=== PATIENT | female | born 1935 | race Caucasian/White ===

== ENCOUNTER 2016-12-04 12:30 | Inpatient (IN) | payer MEDICARE ==
[~2016-12-04] VITALS: Ht 170.2 cm; Wt 102.9 kg
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
[2016-12-04] MEDS ORDERED: ALENDRONATE SOD70 MG PO (16:28)
[2016-12-04] MEDS ORDERED: DULCOLAX5 MG PO (16:30)
[2016-12-04] MEDS ORDERED: CALCIUM 600 +1 EAC3 PO (16:31)
[2016-12-04] MEDS ORDERED: ZYRTEC10 MG PO (16:32)
[2016-12-04] MEDS ORDERED: CYMBALTA20 MG PO (16:33)
[2016-12-04] MEDS ORDERED: FLORANEX / LACT1 TAB PO ×2 (16:35→16:37)
[2016-12-04] MEDS ORDERED: FLUTICASONE PRO16 GM NASAL (16:38)
[2016-12-04] MEDS ORDERED: FUROSEMIDE40 MG PO (16:39)
[2016-12-04] MEDS ORDERED: METOPROLOL TART50 MG PO (16:41)
[2016-12-04] MEDS ORDERED: PATANOL 0.1 % OP5 ML EACH EYE (16:41)
[2016-12-04] MEDS ORDERED: MOBISYL TP (16:42)
[2016-12-04] MEDS ORDERED: K-TAB10 MEQ PO (16:43)
[2016-12-04] MEDS ORDERED: PRAVACHOL40 MG PO (16:43)
[2016-12-04] MEDS ORDERED: SENNA LAXATIVE8.6 MG PO (16:46)
[2016-12-04] MEDS ORDERED: ZYPREXA5 MG PO (16:47)
[2016-12-04] MEDS ORDERED: DURAGESIC1 PATCH .2 TRANSDERM (16:47)
[2016-12-04 18:28] LABS: BASOPHILS 0.1 % (0.0-2.0); EOSINOPHILS 1.7 % (0-7); HEMATOCRIT 40.4 % (36.0-48.0); IMMATURE GRANULOCYTES 0.3 % (0-5); LYMPHOCYTES 25.3 % (15-50); MCH 30.2 pg (26.0-34.0); MCHC 32.2 g/dL (31.0-37.0); MEAN PLATELET VOLUME 10.2 fL (7.4-10.4); MONOCYTES 5.8 % (2-11); NEUTROPHILS 66.8 % (40-80); PLATELET COUNT 241 10x3/uL (130-400); RDW 13.3 % (11.5-14.5); WBC 11.6 10x3/uL (4.8-10.8)
[2016-12-04 19:41] LABS: ALBUMIN 3.8 g/dL (3.4-5.0); ANION GAP 12.6 mmol/L (8-16); BILIRUBIN - TOTAL 0.46 mg/dL (0.2-1.3); CALCIUM 9.4 mg/dL (8.5-10.1); CARBON DIOXIDE 33.1 mmol/L (21.0-32.0); CHOL - HDL RATIO 3.2 ratio (2.3-4.1); CREATININE - SERUM 1.2 mg/dL (0.6-1.3); LDL-HDL RATIO 0.8 ratio (1.5-3.5); POTASSIUM - SERUM 3.7 mmol/L (3.5-5.1); PROTEIN - SERUM 7.4 g/dL (6.4-8.2); THYROID STIMULATING HORMONE 1.14 uIU/mL (0.36-3.74)
[2016-12-04 19:53] LABS: HEMOGLOBIN A1C 6.1 % (4.8-6.0)
[2016-12-04 20:34] VITALS: BP 139/80
--- NOTE | 2016-12-05 02:27 | NUR ---
RECEIVED IN HALLWAY SETTING IN WHEELCHAIR OUTSIDE OF NURSES STATION. CALM AND COOPERATIVE WITH CARE AND ASSESSMENT. NO SIGNS OF HALLUCINATIONS OR DELUSIONS. O2 @ 2L/M VIA N/C. ENCOURAGE TO EXPRESS NEEDS. PM MEDS GIVEN ORDERED. RESTING EYES CLOSED AT THIS TIME. CONTINUE PLAN OF CARE
[2016-12-05 07:48] VITALS: BP 143/75; BMI 33.9
[2016-12-05 09:57] VITALS: Ht 170.2 cm; Wt 102.9 kg
[2016-12-05 12:33] VITALS: BP 108/73
[2016-12-05 14:43] LABS: COLOR YELLOW (YELLOW)
[2016-12-05 14:44] LABS: APPEARANCE HAZY (CLEAR); BACTERIA MANY /hpf (NONE SEEN); BILIRUBIN NEGATIVE (NEGATIVE); EPITHELIAL CELLS 0-5 /hpf (0-5); GLUCOSE NEGATIVE (NEGATIVE); KETONE NEGATIVE (NEGATIVE); LEUKOCYTE ESTERASE 1+ (NEGATIVE); MUCUS <1+ /lpf (NONE SEEN); NITRITE POSITIVE (NEGATIVE); PROTEIN NEGATIVE (NEGATIVE); RED CELLS - URINE 0-5 /hpf (0-5); SPECIFIC GRAVITY 1.015 (1.005-1.020); UROBILINOGEN NORMAL (NORMAL)
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
[2016-12-05 20:00] VITALS: BP 105/44
--- NOTE | 2016-12-05 21:26 | NUR ---
RECEIVED IN DAYROOM. SETTING IN WHEELCHAIR WITH PEERS AT HER SIDE. SOCIALIZING. ALERT AND ORIENTED X3. NO SIGNS OF HALLUCINATIONS. IN GOOD SPIRITS. CALM AND COOPERATIVE WITH CARE AND ASSESSMENT. ENCOURAGE TO EXPRESS NEEDS. PM MEDS GIVEN ORDERED. RESTING EYES OPEN AT THIS TIME. CONTINUE PLAN OF CARE
[2016-12-06 05:13] LABS: RAPID PLASMA REAGIN Non Reactive (Non Reactive)
[2016-12-06 08:03] VITALS: BP 180/71
[2016-12-06 09:17] LABS: FOLATE (FOLIC ACID) - SERUM >20.0 ng/mL (>3.0); VITAMIN D 25 HYDROXY 44.5 ng/mL (30.0-100.0)
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
--- NOTE | 2016-12-06 11:50 | NUR ---
B) Patient is awake and alert, she is interacting with the groups. Patient is on oxygen continuously 02@2L/M per NC. Patient is not able to move her right arm as she has fallen in the past and she said she crushed it. She is not able to stand unless she has two assist. Her lower legs are slightly edematous. She does have negative thoughts at times. I) Provide prescribed meds. R) Patient is compliant with meds and unit milieu. She has not shown any delusions at this time. P) Continue plan of care.
[2016-12-06 20:13] VITALS: BP 159/64
--- NOTE | 2016-12-07 00:03 | NUR ---
B) Recieved in patient room sitting in a sabi chair, alert and oriented X 3 , calm and cooperative with staff, I) Administered perscribed medications crushed in apple sauce, R) Medication compliant, friendly and pleasant, P) Continue plan of care,
--- NOTE | 2016-12-07 05:05 | PN ---
PATIENT:PRETTY GUIDRY MEDICAL RECORD: [id number] LOCATION:AMY Wise ADMISSION DATE: 12/04/16 PROGRESS NOTE DATE OF SERVICE: 12/06/2016 SUBJECTIVE: The patient states she thinks she is feeling better. OBJECTIVE: Staff reports the patient continues to show florid psychotic symptoms. She continues to state that someone is going to try to kill her and that someone has murdered her . The patient is somewhat poorly cooperative with staff on routine activities. She exhibits some degree of self-neglect. Because of worsening psychosis, medications will be adjusted. On exam, the patient's mood is somewhat anxious. Affect is shallow and brittle. Speech is tangential. Content of thought is positive for paranoid delusional ideation. Sensorium is unchanged. ASSESSMENT: No change in diagnosis. PLAN: 1. Advance Zyprexa to 7.5 mg daily. 2. Maintain other medications. 3. Continue supportive therapy. TRANSINT:[id number] Voice Confirmation ID: [id number] DOCUMENT ID: [id number] AN ACOSTA III, MD at 0505 CC: [id number] DICTATION DATE: 12/06/16 1103 PLUMBING CONTRACTOR: 12/06/16 1202 ADM IN [id number] [place] [address]
[2016-12-07 07:43] VITALS: BP 169/63
--- NOTE | 2016-12-07 08:30 | NUR ---
PATIENT IS AWAKE AND ALERT, SHE IS PLEASANT AND COOPERATIVE, ORIENTED X3. SITTING IN A MARTHA CHAIR WITH OXYGEN ON READY TO GO TO THE DINING ROOM FOR BREAKFAST.
--- NOTE | 2016-12-07 15:17 | NUR ---
B) PATIENT IS AWAKE AND ALERT, SHE HAS BEEN COOPERATIVE IN GROUPS SHE IS ABLE TO STAND WITH ASSIST TO TRANSFER. SHE IS ORIENTED X3, SHE HAS SHOULDER AND ARM PAIN, SHE REFUSES HER ASPERCREAME. I) PROVIDE PRESCRIBED MEDS, ENCOURAGE TO DRINK WATER. R) PATIENT IS COMPLIANT WITH MEDS AND UNIT MILIEU. P) CONTINUE PLAN OF CARE.
[2016-12-07 19:30] VITALS: BP 117/63
--- NOTE | 2016-12-07 21:30 | NUR ---
RECEIVED IN DAYROOM SITTING IN RECLINER.. ALERT AND ORIENTED. CALM AND COOPERATIVE WITH CARE AND ASSESSMENT. VSS. ADMINISTER PRESCRIBED MEDICATIONS CRUSHED IN APPLESAUCE. REORIENT AND REDIRECT NEEDED. WILL CONTINUE WITH PLAN OF CARE.
[2016-12-08 08:34] VITALS: BP 156/91
--- NOTE | 2016-12-08 10:12 | NUR ---
Nutrition Follow Up: Chart reviewed. Diet: Regular PO Intake: 74% (9 meal avg) Wt stable No new labs Meds: Lasix Pt with good po intake at this time. No new labs to assess. RD following.
--- NOTE | 2016-12-08 10:37 | PN ---
PATIENT:PRETTY GUIDRY MEDICAL RECORD: [id number] LOCATION:AMY Wise ADMISSION DATE: 12/04/16 PROGRESS NOTE DATE OF SERVICE: 12/07/2016 SUBJECTIVE: The patient states "I am not crazy." OBJECTIVE: The patient has continued to exhibit delusional ideation as well as some possible auditory hallucinosis. However, she is somewhat more redirectable. She continues under treatment for a significant urinary tract infection. On exam, mood is slightly elevated and occasionally irritable. Affect is brittle. Speech is rambling and tangential. Content of thought is positive for delusional ideation. Sensorium is unchanged. ASSESSMENT: No change in diagnosis. PLAN: 1. Continue with Zyprexa 7.5 mg daily. 2. Continue other medications. 3. Continue supportive therapy. TRANSINT:[id number] Voice Confirmation ID: [id number] DOCUMENT ID: [id number] AN ACOSTA III, MD at 1037 CC: [id number] DICTATION DATE: 12/07/16 1249 COST MANAGER: 12/07/16 1311 ADM IN [id number] [place] [address]
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
--- NOTE | 2016-12-08 18:13 | PN ---
PATIENT:PRETTY GUIDRY MEDICAL RECORD: [id number] LOCATION:AMY SaldivarRubyClaudia ADMISSION DATE: 12/04/16 PROGRESS NOTE DATE OF SERVICE: 12/08/2016 SUBJECTIVE: No new complaint. OBJECTIVE: The patient continues to have some difficulty sleeping and complains of arthritic pain. Mood on interview is fairly euthymic. Affect is somewhat expansive. Speech is tangential. Content of thought still shows delusional ideation of a paranoid nature. Sensorium shows no change. ASSESSMENT: No change in diagnosis. PLAN: 1. We will maintain Zyprexa at 7.5 mg q.h.s. 2. Continue other medications. 3. Continue supportive care. TRANSINT:[id number] Voice Confirmation ID: [id number] DOCUMENT ID: [id number] AN ACOSTA III, MD at 1813 CC: [id number] DICTATION DATE: 12/08/16 1138 ELECTRONICS LEAD: 12/08/16 1308 ADM IN [id number] [place] [id number]
[2016-12-08 19:30] VITALS: BP 143/73
--- NOTE | 2016-12-08 23:00 | NUR ---
RECEIVED IN DAYROOM SITTING IN RECLINER. CALM AND COOPERATIVE WITH CARE AND ASSESSMENT. SLEEPS SITTING IN CHAIR. WILL CONTINUE WITH PLAN OF CARE.
[2016-12-09 10:37] VITALS: BP 112/63
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
[2016-12-09 20:00] VITALS: BP 147/55
--- NOTE | 2016-12-10 01:35 | NUR ---
B) Recieved sitting in a sabi chair in the day room, alert and oriented X 3, calm and cooperative with staff, I) Administered perscribed medications, PRN Percocet PO at 0100 for abdomen pain 7 of 10, redirected as needed R) Medication compliant, social with staff, P) continue plan of care.
--- NOTE | 2016-12-10 08:00 | NUR ---
B) Patient is awake and alert, she says she isn't hearing voices as much as she was. She is alert, oriented x3. She can stand to transfer with staff assist. Patients Sat at 98% on room air. Provided her O2 per N/C, since Sat is 98% did decrease oxygen to 0.5 L/M per N/C. I) Provide prescribed meds. Recheck Sats every couple hours. Redirect to reality. R) Provide prescribed meds. P) Continue plan care.
[2016-12-10 09:55] VITALS: BP 171/74
--- NOTE | 2016-12-10 10:00 | NUR ---
Patients O2 sat at 95% on .5 L/M per N/C.
--- NOTE | 2016-12-10 11:01 | NUR ---
Patient c/o pain rates it 09/04, says it is a h/a. Provided ultram 50 mg po. Asked patient if she is hearing voices. Patient said "Not as much as they were, but I do, but I'll tell you I don't want to hear them"
--- NOTE | 2016-12-10 11:40 | NUR ---
Patient says pain is less, rates it 5/10 now.
--- NOTE | 2016-12-10 12:00 | NUR ---
Checked o2 sat 93% on .5 L/M per N/C.
--- NOTE | 2016-12-10 12:10 | NUR ---
Patient denies pain now.
--- NOTE | 2016-12-10 14:00 | NUR ---
Checked O2 sat it's 96% on .5 L/M per N/C.
--- NOTE | 2016-12-10 17:15 | NUR ---
O2 sat checked, it's 95% on .5 L/M per N/C.
[2016-12-10 19:30] VITALS: BP 130/104
--- NOTE | 2016-12-10 22:02 | NUR ---
RECEIVED IN DAYROOM. SETTING IN RECLINER WITH PEERS AT HER SIDE. CALM AND COOPERATIVE WITH CARE AND ASSESSMENT. NO SIGNS OF HALLUCINATION OR PARANOIA. SOCIAL WITH STAFF AND PEERS. ENCOURAGE TO VOICE NEEDS. PM MEDS GIVEN ORDERED. RESTING EYES CLOSED. CONTINUE PLAN OF CARE
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
[2016-12-11 10:26] VITALS: BP 124/63
[2016-12-11 20:26] VITALS: BP 147/61
--- NOTE | 2016-12-11 21:47 | NUR ---
RECEIVED IN BEDROOM. SETTING IN RECLINING CHAIR. ALERT AND ORIENTED. CALLED THIS NURSE BY NAME. IN GOOD SPIRITS. REINFORCE FALLS SAFETY. CALM AND COOPERATIVE WITH CARE AND ASSESSMENT. PM MEDS GIVEN ORDERED. RESTING EYES CLOSED AT THIS TIME. CONTINUE PLAN OF CARE
[2016-12-12 10:14] VITALS: BP 130/72
--- NOTE | 2016-12-12 10:40 | PN ---
PATIENT:PRETTY GUIDRY MEDICAL RECORD: [id number] LOCATION:JannaJOSELO Benny112 ADMISSION DATE: 12/04/16 PROGRESS NOTE DATE OF SERVICE: 12/11/2016 SUBJECTIVE: The patient states that someone has killed her and then someone is in the hospital looking for her. OBJECTIVE: The patient is cooperative overall with exam. Mood is anxious. Affect is rather peculiar. Speech is tangential and rambling. Content of thought still positive for active delusional ideation. Sensorium is unchanged. ASSESSMENT: No change in diagnoses. PLAN: 1. We will advance Zyprexa as indicated. 2. Continue other medications. 3. Continue supportive therapy. TRANSINT:[id number] Voice Confirmation ID: [id number] DOCUMENT ID: [id number] AN ACOSTA III, MD at 1040 CC: [id number] DICTATION DATE: 12/11/16 1140 OFFICE CLERK ASSISTANT: 12/11/16 1905 ADM IN [facility] [address] [place] [address]
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
[2016-12-12 19:40] VITALS: BP 163/80
--- NOTE | 2016-12-12 20:59 | NUR ---
RECEIVED IN DAYROOM. SETTING IN RECLINING CHAIR. ALERT AND ORIENTED X3. SOCIAL. CALM AND COOPERATIVE WITH CARE AND ASSESSMENT. NO SIGNS OF HALLUCIANTIONS. NO SIGNS OFPARANOIA. ENCOURAGE TO EXPRESS NEEDS. PM MEDS GIVEN ORDERED. RESTING IN RECLINER EYES OPEN AT THIS TIME. CONTINUE PLAN OF CARE
--- NOTE | 2016-12-13 07:41 | PN ---
PATIENT:PRETTY GUIDRY MEDICAL RECORD: [id number] LOCATION:AMY BennyClaudia ADMISSION DATE: 12/04/16 PROGRESS NOTE DATE OF SERVICE: 12/12/2016 SUBJECTIVE: No new complaint. OBJECTIVE: The patient did report that she slept better last night. Less pain complaints today. No further overt psychosis. On exam, mood euthymic. Affect is bland. Speech is fairly fluent. Content of thought as noted above. Sensorium is unchanged. ASSESSMENT: No change in diagnosis. PLAN: 1. Maintain all current medications. 2. Supportive therapy. 3. Anticipate discharge fairly soon. TRANSINT:[id number] Voice Confirmation ID: [id number] DOCUMENT ID: [id number] AN ACOSTA III, MD at 0741 CC: [id number] DICTATION DATE: 12/12/16 1129 MERCHANT BANKER: 12/12/16 1157 ADM IN [id number] [place] [id number]
[2016-12-13 08:03] VITALS: BP 143/73
--- NOTE | 2016-12-13 19:49 | PN ---
PATIENT:PRETTY GUIDRY MEDICAL RECORD: [id number] LOCATION:AMY SaldivarRubyClaudia ADMISSION DATE: 12/04/16 PROGRESS NOTE DATE OF SERVICE: 12/13/2016 SUBJECTIVE: No new complaint. OBJECTIVE: The patient has been doing fairly well overall. She still complains of arthritic pain. She continues to exhibit some delusional ideation, but she is tolerating medication change well. On exam, mood for the most part euthymic. Affect is bland. Speech is fluent. Content of thought is as noted above. Sensorium unchanged. ASSESSMENT: No change in diagnosis. PLAN: 1. Continue all current medications. 2. Continue supportive therapy. TRANSINT:[id number] Voice Confirmation ID: [id number] DOCUMENT ID: [id number] AN ACOSTA III, MD at 1949 CC: [id number] DICTATION DATE: 12/13/16 1127 BRICK WHEELER: 12/13/16 1148 ADM IN [id number] [place] [address]
[2016-12-13 19:53] VITALS: BP 156/64
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
--- NOTE | 2016-12-14 05:08 | NUR ---
B) RECIEVED SITTING IN A MARTHA CHAIR IN THE DAY ROOM ALERT ABND ORIENTED , CALM AND COOPERATIVE WITH STAFF, WATCHING TV, I) ADMINISTERED PERSCRIBED MEDICATIONS, ASSISTED WITH TRANSPORT TO ROOM, R) MEDICATION COMPLIANT, AWARE OF SURROUNDINGS, NO HALLUCINATIONS NOTED THIS SHIFT, P) CONTINUE PLAN OF CARE.
[2016-12-14 08:08] VITALS: BP 159/79
--- NOTE | 2016-12-14 10:27 | NUR ---
Nutrition Follow Up: Chart reviewed. Diet: Regular PO Intake: 97% (9 meal avg) Noted Edema +2 per MD note Wt gain of 10# since admit +BM 12/12/16 Meds: Lasix, Zofran No new labs Pt with excellent po intake at this time. Rec continue current diet. RD following.
[2016-12-14] MEDS ORDERED: FEXOFENADINE HC60 MG PO (11:49)
[2016-12-14] MEDS ORDERED: NAMENDA5 MG PO (11:50)
[2016-12-14] MEDS ORDERED: ZYPREXA10 MG PO (11:52)
--- NOTE | 2016-12-14 12:46 | NUR ---
B.) Alert and oriented times 4, calm and cooperative with am assessment. I.) Administer prescribed medications and monitor compliance. Assess for any delusions and refocus patient to reality versus nonreality. Monitor safety. R.) Compliant eith medications, does not verbalize any delusions unless asked why she is here, then she repeats the story of "stacie and her trying to kill her." Patient realizes that she can avoid getting upset over these thought by not listening and annoying such things, has no paranoia is social with others without any delusions. Safety maintained. P.) Plan discharge later today. Educated patient on discharge for today, verbalized understanding.
--- NOTE | 2016-12-14 14:56 | NUR ---
Patient c/o pain all over rates pain 8/10. Ultram 50 mg po given now.
--- NOTE | 2016-12-14 15:50 | NUR ---
Patient discharged to [facility] per their transporation, all belongings released with patient, report given to nurse Esquivel.
--- NOTE | 2016-12-18 10:16 | DS ---
PATIENT:PRETTY GUIDRY :39 MEDICAL RECORD: [id number] DISCHARGE SUMMARY ADMISSION DATE: 12/04/16 DISCHARGE DATE: 12/14/16 DATE OF ADMISSION: 12/04/2016 DATE OF DISCHARGE: 12/14/2016 HISTORY OF PRESENT ILLNESS: A 81-year-old white female who was accepted on transfer from [facility] in [place]. The patient had a preexisting diagnosis of Alzheimer dementia with behavioral disturbance, but had been recently exhibiting psychotic symptoms as well. She had a rather florid paranoid delusional ideations as well as some apparent visual and auditory hallucinations. She had specifically believes that a man was going to try to kill her and stated that she saw people outside of the [facility] window. Because of worsening psychosis, the patient was admitted. For further details, please see previously dictated history. COURSE IN THE HOSPITAL: The patient was seen by Dr. Braxton who was familiar with her care from having treated her at the [facility]. He noted in his workup the presence of hyperlipidemia, osteoarthritis, exogenous obesity, history spastic colon, osteoporosis, type 2 diabetes and asthma as well as chronic systolic heart failure. The patient continued to give evidence of acute psychosis. At the time of admission, she continued to describe in her fears of someone entering the hospital with the intent to harm her. She said that she believes someone had killed her . She also stated that someone might try to follow her back to the [facility] and harm her. The patient was started on increased doses of antipsychotic medications, Zyprexa was eventually increased as high as 10 mg daily. It was reduced to 7.5 mg daily at the time of discharge. In addition, the patient was treated with Namenda 5 mg b.i.d. for her dementing symptoms. She was maintained on a previous dose of Cymbalta 20 mg daily for mood control. The patient showed a gradual resolution of her acute psychosis, although, she did have some moderate delusional ideation still present time of discharge; however, she was felt to be improving sufficiently to return to the [facility] environment. Other ongoing medications included Senokot, potassium supplements, Patanol eye drops, Lopressor, Floranex, Lasix, Carla, Duragesic patch for pain and Pravachol. By the time of discharge, the patient was in stable condition. FINAL DIAGNOSES: AXIS I: Alzheimer dementia with psychotic features -- improved. AXIS II: No diagnosis. AXIS III: Type 2 diabetes, osteoarthritis, osteoporosis, hyperlipidemia, exogenous obesity, asthma. AXIS IV: Moderate. AXIS V: 38. PLAN: 1. The patient is discharged on medications as described above. 2. Diet and activities as tolerated. 3. Follow up by [facility] physician. DISCHARGE SUMMARY REPORT [id number] PRETTY GUIDRY TRANSINT:[id number] Voice Confirmation ID: [id number] DOCUMENT ID: [id number] AN ACOSTA III, MD at 1016 CC: [id number] DICTATION DATE: 12/14/16 1209 ADMISSIONS ASSISTANT: 12/14/16 1324 DIS IN 12/14/16 [id number] [place] [address]
== END 2016-12-14 15:50 | DRG 57 ==
LOC: D.PSYCH 12:30
PROVIDERS: Psychiatry & Neurology Psychiatry; ADMIT Psychiatry & Neurology Psychiatry
DX: G30.9 Alzheimer's disease, unspecified (principal); F02.81 Dementia in other diseases classified elsewhere, unspecified severity, with behavioral disturbance; I50.22 Chronic systolic (congestive) heart failure; E11.40 Type 2 diabetes mellitus with diabetic neuropathy, unspecified; M19.90 Unspecified osteoarthritis, unspecified site; M25.511 Pain in right shoulder; M81.0 Age-related osteoporosis without current pathological fracture; E78.5 Hyperlipidemia, unspecified; E66.09 Other obesity due to excess calories; J45.909 Unspecified asthma, uncomplicated; F41.8 Other specified anxiety disorders; K21.9 Gastro-esophageal reflux disease without esophagitis; G89.29 Other chronic pain; Z74.09 Other reduced mobility; K59.00 Constipation, unspecified

== ENCOUNTER 2017-11-03 12:55 | Inpatient (IN) | payer MEDICARE, MEDICAID ==
[~2017-11-03] VITALS: Ht 170.2 cm; Wt 99.8 kg
[~2017-11-03 12:55] MED LIST: ALENDRONATE SOD70 MG PO; CALCIUM 600 +1 EAC3 PO; CYMBALTA20 MG PO; DULCOLAX5 MG PO; DURAGESIC1 PATCH .2 TRANSDERM; FEXOFENADINE HC60 MG PO; FLORANEX / LACT1 TAB PO; FLUTICASONE PRO16 GM NASAL; FUROSEMIDE40 MG PO; K-TAB10 MEQ PO; METOPROLOL TART50 MG PO; MOBISYL TP; NAMENDA5 MG PO; PATANOL 0.1 % OP5 ML EACH EYE; PRAVACHOL40 MG PO; SENNA LAXATIVE8.6 MG PO; ZYPREXA10 MG PO; ZYPREXA5 MG PO; ZYRTEC10 MG PO
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
[2017-11-03 14:52] VITALS: BP 155/66; BMI 34.5
[2017-11-03] MEDS ORDERED: ZYPREXA5 MG PO (15:40)
[2017-11-03] MEDS ORDERED: ACETAMINOPHEN500 M1 PO (15:41)
[2017-11-03] MEDS ORDERED: CYMBALTA60 MG PO (15:45)
[2017-11-03] MEDS ORDERED: GABAPENTIN100 MG PO (15:51)
[2017-11-03] MEDS ORDERED: HUMALOG 30100 UNITS/ SC (15:59)
[2017-11-03] MEDS ORDERED: GLUCOPHAGE500 MG PO (16:07)
[2017-11-03] MEDS ORDERED: ONDANSETRON4 MG/2 M3 IV (16:11)
[2017-11-03] MEDS ORDERED: TYLENOL ARTHRITIS PO (16:15)
--- NOTE | 2017-11-03 17:00 | NUR ---
FSBS IS 93
[2017-11-03 18:32] LABS: APPEARANCE SLT CLOUDY (CLEAR); BILIRUBIN NEGATIVE (NEGATIVE); COLOR YELLOW (YELLOW); GLUCOSE NEGATIVE (NEGATIVE); KETONE NEGATIVE (NEGATIVE); NITRITE NEGATIVE (NEGATIVE); PROTEIN NEGATIVE (NEGATIVE); UROBILINOGEN NORMAL (NORMAL)
[2017-11-03 18:34] LABS: BACTERIA FEW /hpf (NONE SEEN)
[2017-11-03 20:27] VITALS: BP 159/74
--- NOTE | 2017-11-04 05:37 | NUR ---
B) Patient is alert and oriented X 3, delusional at times: thinks family and Dr Stover coming to see her during the evening. bizarre statements about Dr Stover having a gun when he comes to the unit I) Administered scheduled medications, redirected as needed R) Medication compliant, patient resting quietly now in bed, P) Continue plan of care.
[2017-11-04 06:46] LABS: BASOPHILS 0 % (0-2); EOSINOPHILS 6.3 % (0-7); HEMATOCRIT 39.3 % (36.0-48.0); HEMOGLOBIN 12.6 g/dL (12-16); IMMATURE GRANULOCYTES 0.2 % (0-5); LYMPHOCYTES 34.3 % (15-50); MCH 31.5 pg (26.0-34.0); MCHC 32.1 g/dL (31.0-37.0); MCV 98.3 fL (80.0-100.0); MEAN PLATELET VOLUME 10.1 fL (7.4-10.4); MONOCYTES 7.6 % (2-11); NEUTROPHILS 51.6 % (40-80); PLATELET COUNT 223 10x3/uL (130-400); RDW 13.5 % (11.5-14.5)
[2017-11-04 07:00] VITALS: BP 213/80
[2017-11-04 07:05] LABS: HEMOGLOBIN A1C 6.3 % (4.8-6.0)
[2017-11-04 07:10] LABS: ALBUMIN 3.4 g/dL (3.4-5.0); ANION GAP 11.4 mmol/L (8-16); BILIRUBIN - TOTAL 0.54 mg/dL (0.2-1.3); CARBON DIOXIDE 32.6 mmol/L (21.0-32.0); CHOL - HDL RATIO 3.3 ratio (2.3-4.1); CREATININE - SERUM 0.9 mg/dL (0.6-1.3); PROTEIN - SERUM 6.9 g/dL (6.4-8.2); THYROID STIMULATING HORMONE 1.78 uIU/mL (0.36-3.74)
--- NOTE | 2017-11-04 08:49 | NUR ---
ADMINISTERED MORNING MEDS CRUSHED IN APPLESAUCE PER PT REQUEST. FLAT AFFECT. NO S/SX OF ACUTE DISTRESS NOTED. WILL CONTINUE TO MONITOR
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
[2017-11-04 20:07] VITALS: BP 180/70
--- NOTE | 2017-11-04 20:07 | NUR ---
RECEIVED IN HALLWAY. SITTING IN WHEELCHAIR IN HALLWAY WITH EYES OPEN. CALM AND COOPERATIVE WITH CARE AND ASSESSMENTS. DENIES THOUGHTS OF SELF HARM. ENCOURAGE TO EXPRESS NEEDS. CONTINUES TO REST QUIETLYIN HER WHEELCHAIR AT THIS TIME. CONTINUE PLAN OF CARE
--- NOTE | 2017-11-04 20:16 | NUR ---
RECEIVED IN HALLWAY. SITTING QUIETLY IN WHEELCHAIR. CALM AND COOPERATIVE WITH CARE AND ASSESSMENTS. NO SIGNS OF AGGRESSION. NO SIGNS OF HALLUCINATIONS. ENCOURAGE TO EXPRESS NEEDS. CONTINUES TO REST QUIETLY IN WHEELCHAIR. CONTINUE PLAN OF CARE
[2017-11-05 07:00] VITALS: BP 175/78
--- NOTE | 2017-11-05 09:22 | NUR ---
PT RESTING IN MARTHA CHAIR EYES CLOSED UNLABORED RESPIIRATIONS ALL MEDS AND BREAKFAST REFUSED
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
[2017-11-05 15:00] VITALS: BMI 34.5
--- NOTE | 2017-11-05 15:02 | NUR ---
PT IS VERY ARGUMENTATIVE AND REFUSED SOME OF THER ASSESSMENT AND VITAL SIGNS. EDUCATED PT ON IMPORTANCE OF THESE THINGS BUT PT CONTINUED TO REFUSE. PT REFUSES TO WEAR HER OXYGEN BUT HER SATS ARE GOOD. PT REFUSED TO TRANSFER FROM MARTHA CHAIR TO WHEELCHAIR. FALL PRECAUTIONS MAINTAINED. WILL CONTINUE TO MONITOR AND CONTINUE WITH PLAN OF CARE.
--- NOTE | 2017-11-05 17:15 | NUR ---
PT REFUSED TO EAT SUPPER REQUESTED 2 CRANBERRY JUICES
[2017-11-05 19:30] VITALS: BP 160/64
--- NOTE | 2017-11-06 02:04 | NUR ---
RECEIVED IN BEDROOM. RESTING IN RECLINING CHAIR AT BEDSIDE. CALM AND COOPERATIVE WITH CARE AND ASSESSMENTS. NO SIGNS OF HALLUCINATIONS. NO SIGNS OF AGGRESSIONS. NO SIGNS OF PARANOIA. RESTING IN BED WITH EYES CLOSED AT THIS TIME. CONTINUE PLAN OF CARE
[2017-11-06 07:00] VITALS: BP 174/76
[2017-11-06 07:31] LABS: RAPID PLASMA REAGIN Non Reactive (Non Reactive)
[2017-11-06 08:19] LABS: FOLATE (FOLIC ACID) - SERUM 11.3 ng/mL (>3.0)
[2017-11-06 12:45] VITALS: Ht 170.2 cm; Wt 99.8 kg
--- NOTE | 2017-11-06 13:01 | NUR ---
B) PATIENT IS AWAKE AND ALERT, SHE IS CALM AND COOPERATIVE. SHE HAS NOT MENTIONED ANY HALLUCINATIONS TODAY. I) PROVIDE PRESCRIBED MEDS. R) PATIENT IS COMPLIANT WITH MEDS. P) CONTINUE POC.
--- NOTE | 2017-11-06 13:23 | PN ---
PATIENT:PRETTY GUIDRY MEDICAL RECORD: [id number] LOCATION:AMY SaldivarRubyClaudia ADMISSION DATE: 11/03/17 PROGRESS NOTE DATE OF SERVICE: 11/05/2017 SUBJECTIVE: The patient's case was discussed with staff. She has no new complaint. OBJECTIVE: The patient is in good behavioral control with poor insight about her condition. She generally tolerates her medicines well. ASSESSMENT: No change in diagnoses. PLAN: The patient makes a number of delusional statements. She does have a urinary tract infection. I suspect that her underlying level of confusion and psychotic symptoms will improve if that is adequately treated. I am going to leave the treatment of this to her it project coordinator. TRANSINT:[id number] Voice Confirmation ID: [id number] DOCUMENT ID: [id number] GAMALIEL MIRANDA MD at 1323 CC: [id number] DICTATION DATE: 11/05/17 1420 PLISSE MACHINE OPERATOR HELPER: 11/05/17 1546 ADM IN [place] [address] [place] [address]
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
--- NOTE | 2017-11-06 15:00 | NUR ---
PATIENT IS CALMER, BUT SHE IS STILL HALLUCINATING, STATING THAT HER FAMILY WANTS TO TAKE HER HOME, EXPLAINED TO HER THAT SHE CAN'T GO UNTIL THE RELEASES HER, SHE SAID "OH, YEAH YOU DID TELL ME THAT, NOW I REMEMBER".
--- NOTE | 2017-11-07 00:05 | NUR ---
RECEIVED IN HALLWAY. RESTING IN RECLINER WITH EYES CLOSED. RESPONDS TO VOICE. IN GOOD SPIRITS. CALM AND COOPERATIVE WITH CARE AND ASSESSMENTS. NO SIGNS OF AGGRESSION. NO SIGNS OF HALLUCINATIONS. ENCOURAGE TO EXPRESS NEEDS. RESTING IN RECLINER WITH EYES CLOSED AT THIS TIME. CONTINUE PLAN OF CARE
[2017-11-07 10:30] VITALS: BP 145/64
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
--- NOTE | 2017-11-07 17:00 | PN ---
PATIENT:PRETTY GUIDRY MEDICAL RECORD: [id number] LOCATION:AMY ZapataClaudia ADMISSION DATE: 11/03/17 PROGRESS NOTE DATE OF SERVICE: 11/06/2017 SUBJECTIVE: The patient's case was discussed with staff. She has no new complaint. OBJECTIVE: The patient is in good behavioral control. She has poor insight about her condition. ASSESSMENT: No change in diagnoses. PLAN: Current medicines and therapies have been reviewed, both will be maintained. Long-term prognosis is guarded. TRANSINT:[id number] Voice Confirmation ID: [id number] DOCUMENT ID: [id number] GAMALIEL MIRANDA MD at 1700 CC: [id number] DICTATION DATE: 11/06/17 1341 GALLERY ASSISTANT: 11/06/17 1433 ADM IN [id number] [place] [address]
[2017-11-07 19:30] VITALS: BP 170/66
--- NOTE | 2017-11-07 23:47 | NUR ---
B) Patient is alert and oriented, calm and cooperative, no hallucination noted this shift, I) Administered scheduled medications, monitored for safety, R) Medications compliant, resting quietly in her chair sleeping now, P) Continue plan of care.
--- NOTE | 2017-11-08 07:29 | NUR ---
B) PATIENT IS AWAKE AND ALERT THIS AM, SHE IS PLEASANT SHE IS HALLUCINATING AT NIGHT SHE SAID SHE DID NOT SLEEP AT ALL LAST NIGHT, ALTHOUGH STAFF SHOW 4.75 HOURS. ASKED PATIENT IF SHE WAS HEARING VOICES SHE SAID "NO, SOMEONE HAD THE TV ON ALL NIGHT LONG" THERE IS NO TV IN THE PATIENT ROOMS. PATIENT CAN STAND, BUT SHE IS RESISTANT AT TIMES. I) PROVIDE PRESCRIBED MEDS. R) PATIENT IS COMPLIANT WITH MEDS. P) CONTINUE POC.
[2017-11-08 09:47] VITALS: BP 187/96
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
[2017-11-08 12:37] VITALS: BP 187/96
--- NOTE | 2017-11-08 14:07 | PN ---
PATIENT:PRETTY GUIDRY MEDICAL RECORD: [id number] LOCATION:AMY Zapata112 ADMISSION DATE: 11/03/17 PROGRESS NOTE DATE OF SERVICE: 11/07/2017 SUBJECTIVE: The patient's case was discussed with staff. She has no new complaint. OBJECTIVE: The patient is in good behavioral control with limited insight about her condition. She generally tolerates her medicines well. ASSESSMENT: No change in diagnoses. PLAN: Supportive and educational interventions were made. Long-term prognosis is guarded. TRANSINT:[id number] Voice Confirmation ID: [id number] DOCUMENT ID: [id number] GAMALIEL MIRANDA MD at 1407 CC: [id number] DICTATION DATE: 11/07/17 1734 BEHAVIORAL CONSULTANT: 11/08/17 0008 ADM IN [place] [id number] [place] [address]
[2017-11-08 19:59] VITALS: BP 187/96
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
[2017-11-09 10:58] VITALS: BP 140/080
--- NOTE | 2017-11-09 13:00 | NUR ---
ORIENTED TO SELF, CALM AND COOPERATIVE WITH STAFF AND PEERS. ASSESSMENT COMPLETED PER FLOW SHEET. MONITOR FOR SAFETY AND CHANGES, CONTINUE POC.
--- NOTE | 2017-11-09 13:58 | NUR ---
Nutrition Follow Up: Pt is eating 31% meal avg on a diabetic diet. Noted pt is refusing some meals. +BM 11/08/17. Labs reviewed. Meds noted including Lasix. Rec liberalizing diet to regular to encourage po intake. Will continue to honor food preferences. RD following.
--- NOTE | 2017-11-09 21:07 | PN ---
PATIENT:PRETTY GUIDRY MEDICAL RECORD: [id number] LOCATION:AMY SaldivarRubyClaudia ADMISSION DATE: 11/03/17 PROGRESS NOTE DATE OF SERVICE: 11/09/2017 SUBJECTIVE: The patient states that she will be at her home this afternoon now that she asked me to drop by. OBJECTIVE: The patient continues to exhibit paranoid delusional ideations and some hallucinations. She has been overall cooperative with staff. On exam, mood is pleasant and euthymic. Affect is somewhat peculiar. Speech is fluent. Content of thought positive for active delusional ideation. Sensorium is unchanged. ASSESSMENT: No change in diagnosis. PLAN: 1. Maintain current medication. 2. Continue supportive therapy. TRANSINT:[id number] Voice Confirmation ID: [id number] DOCUMENT ID: [id number] AN ACOSTA III, MD at 2107 CC: [id number] DICTATION DATE: 11/09/17 1157 MATTRESS AND FOUNDATION SEWER: 11/09/17 1252 ADM IN [facility] [address] [place] [address]
--- NOTE | 2017-11-10 01:34 | NUR ---
B) Patient is alert and oriented X 3, calm and cooperative with care and assessment, I) Administered scheduled medications, monitored for safety, R) Medication compliant, resting in a recliner in her room,] P) Continue plan of care.
[2017-11-10 07:00] VITALS: BP 140/71
--- NOTE | 2017-11-10 13:10 | NUR ---
IS ORIENTED TO SELF,HOSPITAL,AND DATE.HALLUCINATIONS PRESENT,TALKS TO BROTHER WHO IS A SPIRIT AND INVISIBLE BUT DROVE A CAR HERE TO TAKE HER HOME.COMPLIANT WITH MEDS AND STAFF.WILL CONTINUE WITH PLAN OF CARE,MONITOR FOR SAFETY AND CHANGES.
[2017-11-10 22:30] VITALS: BP 155/60
--- NOTE | 2017-11-11 04:23 | NUR ---
RECEIVED IN PATIENT ROOM. RESTING IN RECLINER WITH EYES OPEN. CALM AND COOPERATIVE WITH CARE AND ASSESSMENT. NO SIGNS OF AGGRESSION. NO DELUSIONAL STATEMENTS MADE. NO PARANOIA. NO HALLUCINATIONS THIS EVENING. ENCOURAGE TO EXPRESS NEEDS. REDIRECT AND REORIENT NEEDED. RESTING IN BED WTIH EYES CLOSED AT THIS TIME. CONTINUE PLAN OF CARE.
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
[2017-11-11 08:18] VITALS: BP 156/065
--- NOTE | 2017-11-11 09:08 | NUR ---
ADMINISTERED MORNING MEDS CRUSHED IN APPLESAUCE WITHOUT DIFFICUTLY. PLEASANT AFFECT. NO S/SX OF ACUTE DISTRESS NOTED. WILL CONTINUE TO MONITOR
--- NOTE | 2017-11-11 10:00 | NUR ---
AWAKE AND CONFUSED THIS MORNING. SITTING IN RECLINER, STILL FEELS TIRED AND SLEEPY. ASSESSMENT COMPLETED PER FLOW SHEET. MONITOR FOR SAFETY AND CONTINUE PLAN OF CARE.
[2017-11-11 19:30] VITALS: BP 148/98
--- NOTE | 2017-11-11 20:21 | NUR ---
RECEIVED IN BEDROOM. RESTING IN HER ROOM IN A RECLINER WITH EYES CLOSED. RESPONDS TO VOICE. CALM AND COOPERATIVE WITH CARE AND ASSESSMENTS. NO SIGNS OF HALLUCINATION. NO SIGNS OF AGGRESSION. ENCOURAGE TO EXPRESS NEEDS. CONTINUE PLAN OF CARE
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
[2017-11-12 08:00] VITALS: BP 153/065
--- NOTE | 2017-11-12 11:08 | PN ---
PATIENT:PRETTY GUIDRY MEDICAL RECORD: [id number] LOCATION:AMY Benny112 ADMISSION DATE: 11/03/17 PROGRESS NOTE DATE OF SERVICE: 11/10/2017 SUBJECTIVE: No new complaint. OBJECTIVE: The patient continues to be confused and delusional. Mood is slightly anxious. Affect overall constricted. Speech is tangential. Flow of thought is disjointed. Content of thought remains positive for florid delusional ideation. Sensorium shows no change. ASSESSMENT: No change in diagnosis. PLAN: 1. Maintain current medication. 2. Continue supportive therapy. TRANSINT:[id number] Voice Confirmation ID: [id number] DOCUMENT ID: [id number] AN ACOSTA III, MD at 1108 CC: [id number] DICTATION DATE: 11/10/17 1038 TRANSPORTATION SECURITY OFFICER: 11/10/17 1058 ADM IN [id number] [place] [address]
[2017-11-12 20:29] VITALS: BP 143/63
--- NOTE | 2017-11-13 05:21 | NUR ---
B) Patient alert and oriented calm and cooperative with care and assessment, I) Administered scheduled medications, monitored for safety and for falls, R) Medication compliant, resting in recliner in her room asleep. P) Continue plan of care.
[2017-11-13 07:57] VITALS: BP 125/66
[2017-11-13 20:59] VITALS: BP 126/68
--- NOTE | 2017-11-14 03:17 | NUR ---
B) Given Tylenol ES for back pain, bilateral hip pain and right shoulder pain with good effect. Sleeping sitting in chair at bedside, refuses to use her bed. Patient says she was menstruating since she was a baby and that is why she never had any children of her own. Claims she has been talking to her brother, sister, [id number], stepson, and her ex- in her room this evening when no one is there but patient. Patient claims they are taking to her by some kind of phone which is also not present, no phone in her room. Pleasant on appraoch. I) Educated to medication regime and benefits of treatment. Oriented to reality. Encouraged to verbalize feelings and focus on here and now. R) Compliant with medications. Delusion, hallucinating, no behavior problem, no aggression exhibited. P) Continue to monitor per plan of care.
[2017-11-14 09:44] VITALS: BP 134/73
--- NOTE | 2017-11-14 10:00 | NUR ---
Alert, pleasant mood, no hallucinations noted, compliant with meds, cooperative with staff, present for group, naps intermittently, no s/s adverse reaction to meds. Takes meds crushed and mixed with neha. pudding. Denies pain, no s/s distress.
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
--- NOTE | 2017-11-14 14:20 | PN ---
PATIENT:PRETTY GUIDRY MEDICAL RECORD: [id number] LOCATION:JannaRubyAKASH ZapataClaudia ADMISSION DATE: 11/03/17 PROGRESS NOTE DATE OF SERVICE: 11/13/2017 SUBJECTIVE: The patient's case was discussed with staff. She has no new complaint. OBJECTIVE: The patient is in good behavioral control with limited insight about her condition. She has had some psychotic symptoms that were reported by staff, but she denies them when I spoke with her. She did not sleep well last night. ASSESSMENT: No change in diagnoses. PLAN: The patient's current medicines will be maintained. I am going to give her trazodone at a dose of 50 mg at bedtime to assist with her sleep consolidation. TRANSINT:[id number] Voice Confirmation ID: [id number] DOCUMENT ID: [id number] GAMALIEL MIRANDA MD at 1420 CC: [id number] DICTATION DATE: 11/13/17 1507 C ENGINEER: 11/13/17 1531 ADM IN [id number] [place] [address]
[2017-11-14] MEDS ORDERED: ZESTRIL40 MG PO (14:37)
[2017-11-14] MEDS ORDERED: PERPHENAZINE2 MG PO (14:38)
[2017-11-14] MEDS ORDERED: TRAZODONE HCL50 MG PO (14:38)
[2017-11-14] MEDS ORDERED: PROTONIX40 MG PO (14:39)
[2017-11-14 19:30] VITALS: BP 132/64
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
[2017-11-15 08:00] VITALS: BP 119/67
--- NOTE | 2017-11-15 08:45 | NUR ---
CALLED REPORT TO [facility], FAXED D/C ORDER AND MED REC. PATIENT IS PACKED, HARD COPY MADE AND WILL SEND WITH PATIENT. PATIENT HAS HER OWN W/C AND O2 TANK ON HER W/C.
--- NOTE | 2017-11-15 09:00 | NUR ---
B) PATIENT IS AWAKE AND ALERT, SHE IS SITTING IN HER W/C AND SHE IS HALLUCINATING SAYING HER BROTHER IS HERE TO PICK HER UP, BUT SHE IS NOT SAYING ANYTHING PARANOID. I) PROVIDE PRESCRIBED MEDS. R) PATIENT IS COMPLIANT WITH MEDS AND SHE IS D/CING TODAY TO [facility]. P) CONT D/C PLAN.
--- NOTE | 2017-11-15 09:25 | NUR ---
PATIENT HAS D/C'D TO [facility].
--- NOTE | 2017-11-15 14:03 | PN ---
PATIENT:PRETTY GUIDRY MEDICAL RECORD: [id number] LOCATION:[id number] ADMISSION DATE: 11/03/17 PROGRESS NOTE DATE OF SERVICE: 11/14/2017 SUBJECTIVE: The patient's case was discussed with staff. She has no new complaint. OBJECTIVE: The patient denies intent to harm herself or others. She tolerates her medicines well. Eye contact is poor. ASSESSMENT: No change in diagnoses. PLAN: Current medicines have been reviewed and will be maintained. Long-term prognosis is guarded. TRANSINT:[id number] Voice Confirmation ID: [id number] DOCUMENT ID: [id number] GAMALIEL MIRANDA MD at 1403 CC: [id number] DICTATION DATE: 11/14/17 1434 MANAGING EDITOR: 11/14/17 1543 DIS IN 11/15/17 [facility] [address] [place] [address]
--- NOTE | 2017-11-22 13:22 | DS ---
PATIENT:PRETTY GUIDRY :39 MEDICAL RECORD: [id number] DISCHARGE SUMMARY ADMISSION DATE: 11/03/17 DISCHARGE DATE: 11/15/17 IDENTIFYING DATA: The patient is 82 years old and she was admitted to the hospital on a voluntary basis secondary to psychotic symptoms. The patient lives in a halfway and has become delusional. She has been sitting by herself and carrying on conversations with people not present. When asked about this, she insists that it is her sister who is just outside the door and is here to pick her up. She is clearly very delusional and she is also displaying some paranoid behaviors along with anxiety. HOSPITAL COURSE: The patient was admitted to the hospital and evaluated from both a medical, psychological, and social standpoint. She was treated with both mood stabilizing and memory enhancing medications. She tolerated both well. She was subsequently transitioned out of the hospital. 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 AXIS II: None. AXIS III: Hypertension. AXIS IV: Moderate stressors. AXIS V: Global assessment of functioning is 40. PLAN: At the time of discharge, the patient was not acutely dangerous to herself or others. She was tolerating her medications well. Followup is to be with her primary care halfway physician. TRANSINT:[id number] Voice Confirmation ID: [id number] DOCUMENT ID: [id number] GAMALIEL MIRANDA MD at 1322 CC: [id number] DICTATION DATE: 11/21/17 1326 [employer] LIBRARIAN: 11/22/17 1044 DIS IN 11/15/17 [facility] [address] [place] [address]
== END 2017-11-15 09:30 | DRG 57 ==
LOC: D.PSYCH 12:55
PROVIDERS: ADMIT Psychiatry & Neurology Psychiatry
DX: G30.1 Alzheimer's disease with late onset (principal); F02.81 Dementia in other diseases classified elsewhere, unspecified severity, with behavioral disturbance; I50.22 Chronic systolic (congestive) heart failure; N39.0 Urinary tract infection, site not specified; I11.0 Hypertensive heart disease with heart failure; E11.40 Type 2 diabetes mellitus with diabetic neuropathy, unspecified; E66.9 Obesity, unspecified; B96.4 Proteus (mirabilis) (morganii) as the cause of diseases classified elsewhere; K21.9 Gastro-esophageal reflux disease without esophagitis; H40.9 Unspecified glaucoma; F32.9 Major depressive disorder, single episode, unspecified; F41.9 Anxiety disorder, unspecified; M81.0 Age-related osteoporosis without current pathological fracture; E78.5 Hyperlipidemia, unspecified; J30.9 Allergic rhinitis, unspecified; K59.09 Other constipation; Z74.09 Other reduced mobility